=== PATIENT | female | born 1945 | race Caucasian/White ===

== ENCOUNTER 2023-04-03 12:59 | Outpatient (AMB) | payer MEDICARE, SELFPAY ==
--- NOTE | 2023-04-03 13:09 | MHC.OFFVIS ---
Intake Vital Signs 04/03/23 13:10 Height 5 ft 9 in Weight 166 lb 2 oz BMI 24.5 BP 142/88 H Blood Pressure Location Rt brachial Position Sitting Respiration 16 Pulse 79 Pulse Source Pulse Oximeter Pulse Oximetry (%) 98 Oxygen Delivery Method Room Air Intake Visit Reasons: [id number] Intake Note: Pt presents for new patient evaluation for memory issues. Pt is here with her son Dexter. They report pts began having memory issues shortly after a stroke 3 years ago. Her also recently and this seems to have worsened her symptoms. The complain of memory loss- both long and short term. 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 Pt reports forgetfulness. She forgets quickly if she did something or not. She is asking same questions to her son over and over again and asking if she did something. Pt also reports difficulty problem solving and non confident decision making. She had a stroke in 2010, and her memory has gradually worsened since then. Pt's passed in 2020, and she was overwhelmed because her did almost everything for finances. Now her son takes care of bills and finances. She has mitral valve replacement done and she is on warfarin. Pt states that her mood is stable, denies depression. She sleeps well, but her cat bothers her sleep sometimes. His son is therapist and he thinks that his mother has ADHD but not diagnosed. She does not drive, her primary care advised to stop driving. She was easily confused where she was going to. Pt's primary care ordered neuropsychology evaluation, but pt does not remember where it is ordered. Pt had a brain MRI done in which showed bilateral parietal cortical loss, bilateral temporal cortical loss and mild evidence of vascular disease. [facility]LY [facility] Surgical History (Updated 04/03/23 @ 13:16 by Hortencia Gibson CMA) H/O section H/O mastectomy Heart valve replaced Family History (Updated 04/03/23 @ 13:18 by Hortencia Gibson CMA) Father No problems noted. Mother No problems noted. Sister Breast CA Social History (Updated 04/03/23 @ 13:19 by Hortencia Gibson CMA) Household Members: None Housing: Apartment Alcohol intake: current Alcohol type: wine Patient Tobacco Use Status: Never used Tobacco Review of Systems Const All systems reviewed & are unremarkable except as noted in HPI and below Physical Exam Vital Signs: Last Vital Signs Pulse 79 04/03/23 13:10 Resp 16 04/03/23 13:10 BP 142/88 H 04/03/23 13:10 Pulse Ox 98 04/03/23 13:10 Oxygen Delivery Method Room Air 04/03/23 13:10 BMI result Body Mass Index 24.5 Const General: cooperative Nutritional Appearance: average body habitus Orientation/consciousness: oriented to person Neck Neck: Yes full ROM and Yes supple Resp Effort & Inspection: normal respiratory effort and able to speak in complete sentences Neuro Other: left hand marketing development representative weakness. hx of wrist fx. General: oriented to person and gait normal Cranial nerves: Yes CN's II-XII intact bilaterally Motor exam (neuro): 5/5 motor strength present throughout (left hand marketing development representative weaker than right.), Pronator motor function not present and no tremor noted Deep tendon reflexes (DTR's): Right brachioradialis reflex intensity grade: 2+, Left brachioradialis reflex intensity grade: 2+, Right patellar reflex intensity grade: 2+ and Left patellar reflex intensity grade: 2+ Psych Appearance: grossly normal Mental Status: mental status grossly normal Speech and movement: Normal speech and movement present Attitude: cooperative Thought process: Normal thought process present Orientation What is the (year) (season) (date) (day) (month)?: season and month Where are we (state) (county) (town or city) (hospital) (floor)?: state, county, town or city and hospital/clinic Registration Name of 3 unrelated objects clearly and slowly, then ask patient to repeat all 3 of them. (1st repeat determines score. Make sure they can repeat all three): object 1, object 2 and object 3 Attention & Calculation (CHOOSE ONE) Spell WORLD backwards (DLROW): 1 letter Language Show patient a wristwatch & ask what it is. Repeat for pencil.: watch and pencil Ask the patient to repeat the phrase 'No ifs, ands, or buts' after you.: correct Ask the patient to 'take a piece of paper with their right hand' 'fold paper in half' 'place paper on floor': take paper in right hand, fold paper in half and place paper on floor Print the sentence 'CLOSE YOUR EYES' on a piece. If patient actually closes eyes then score.: followed written direction Give patient a blank piece of paper & ask to write a sentence. Score if it contains a noun & verb.: sentence contains subject and verb Ask patient to copy figure of intersecting pentagons exactly. Score if all 10 angles & 2 intersects are included.: all 10 angles present & 2 are intersected Score Score: 19 Assessment & Plan Assessment & Plan (1) Memory loss or impairment: Code(s): R41.3 - Other amnesia Plan MMSE score 19 today. Will check labs for reversible causes of memory loss. Advised patient to undergo neuropsychology evaluation. Start memantine 7 mg ER daily. Orders: Orders Comprehensive Met. Panel 04/03/23 R41.3 - Other amnesia TSH reflex Free T4 04/03/23 R41.3 - Other amnesia RPR Monitor reflex titer 04/03/23 R41.3 - Other amnesia Complete Blood Count Auto Diff 04/03/23 R41.3 - Other amnesia Erythrocyte Sedimentation Rate 04/03/23 R41.3 - Other amnesia Vitamin B12 and Folate 04/03/23 R41.3 - Other amnesia Vitamin D 25-OH (D2 and D3) 04/03/23 R41.3 - Other amnesia Referrals Neuropsychiatry Referral R41.3 - Other amnesia Medications: New memantine 7 mg PO DAILY 30 ea 1RF 30 days Coding Level of Care Code New Pt Level 4 (12912) Diagnoses Memory loss or impairment R41.3
[2023-04-03 13:10] VITALS: BP 142/88; PULSE 79; RESP 16; O2SAT 98; BMI 24.5
== END 2023-04-03 13:57 | disposition home or self-care (01) ==
PROVIDERS: PCP Nurse Practitioner; Visit Provider Nurse Practitioner Family
DX: R41.3 Other amnesia (principal)
CPT/HCPCS: 99204

== ENCOUNTER → 2023-04-03 12:59 | Outpatient (BNVA) | payer MEDICARE, SELFPAY | PROVIDERS: PCP Nurse Practitioner; Visit Provider Nurse Practitioner Family | DX: R41.3 Other amnesia (principal); Z86.73 Personal history of transient ischemic attack (TIA), and cerebral infarction without residual deficits | CPT/HCPCS: 99202 ==

== ENCOUNTER 2023-06-04 13:19 | Outpatient (REF) | payer MEDICARE, SELFPAY ==
[2023-06-04 15:07] LABS: MANUAL DIFF FLAG NO
[2023-06-04 15:32] LABS: Basophils Absolute Auto 0.1 X10*3/uL (0.0-0.2); Basophils Percent Auto 0.8 % (0-2); Eosinophils Absolute Auto 0.2 X10*3/uL (0.0-0.4); Eosinophils Percent Auto 3.3 % (0-4); Hematocrit 38.8 % (37.0-47.0); Hemoglobin 12.6 g/dl (12.0-16.0); Imm Gran Abs Auto 0.01 X10*3/uL (0.00-0.03); Imm Gran Pct Auto 0.2 % (0.0-0.4); Lymphocytes Absolute Auto 1.7 X10*3/uL (1.2-4.9); Lymphocytes Percent Auto 28.2 % (20-40); Mean Corpuscular HGB Conc 32.5 g/dl (31.0-35.0); Mean Corpuscular Hemoglobin 30.5 pg (27.0-33.0); Mean Corpuscular Volume 93.9 fL (80.0-98.0); Mean Platelet Volume 9.3 fL (9.4-12.3); Monocytes Absolute Auto 0.5 X10*3/uL (0.1-1.2); Monocytes Percent Auto 7.6 % (2-11); Neutrophils Absolute Auto 3.6 x10*3/uL (2.0-8.3); Neutrophils Percent Auto 59.9 % (45-73); Platelet Count 237 X10*3/uL (160-400); Red Blood Count 4.13 X10*6/uL (4.20-5.50); Red Cell Distribution Width 13.5 % (11.0-16.0)
[2023-06-04 16:02] LABS: Alanine Aminotransferase 13 U/L (0-31); Albumin Level 4.3 g/dL (3.5-5.0); Alkaline Phosphatase 86 U/L (39-117); Anion Gap 10 (12-20); Aspartate Amino Transferase 22 U/L (5-31); Bilirubin Total 1.2 mg/dL (0.0-1.0); Blood Urea Nitrogen 25 mg/dL (9-16); Calcium 9.6 mg/dL (8.4-10.2); Carbon Dioxide 29 mmol/L (22-29); Chloride 108 mmol/L (96-108); Estimated Glomerular Filt Rate 48; Glucose Random 109 mg/dL (60-115); Potassium 4.1 mmol/L (3.3-5.1); Sodium 143 mmol/L (135-145); Total Protein 7.4 g/dL (6.5-8.0)
[2023-06-04 16:17] LABS: TSH reflex Free T4 1.38 uIU/mL (0.32-4.0)
[2023-06-04 16:22] LABS: Erythrocyte Sedimentation Rate 14 MM/HR (0-20)
[2023-06-04 16:35] LABS: Folate 13.1 ng/mL (> or = 4.0)
[2023-06-04 16:40] LABS: Vitamin B12 423 pg/mL (200-900)
[2023-06-05 11:24] LABS: RPR Rapid Plasma Reagin NON-REACTIVE (NON-REACTIVE)
[2023-06-08 15:23] LABS: Vitamin D 25-OH, D2 <4 ng/mL; Vitamin D 25-OH, D3 36 ng/mL; Vitamin D 25-OH, Total 36 ng/mL (30-100)
== END 2023-06-04 13:20 | disposition home or self-care (01) ==
LOC: HO.LAB 13:19
PROVIDERS: PCP Nurse Practitioner; Visit Provider Nurse Practitioner Family
DX: R41.3 Other amnesia (principal)
CPT/HCPCS: 36415; 80053; 82306; 82607; 82746; 84443; 85025; 85652; 86592; 99212

== ENCOUNTER 2023-06-04 13:19 | Outpatient (AMB) | payer MEDICARE, SELFPAY ==
--- NOTE | 2023-06-04 13:33 | A.OFFVIS_ITS ---
Intake Vital Signs 06/04/23 13:44 Height 5 ft 9 in Weight 164 lb 8 oz BMI 24.3 BP 130/82 Blood Pressure Location Rt brachial Position Sitting Pulse 79 Pulse Source Pulse Oximeter Pulse Oximetry (%) 98 Oxygen Delivery Method Room Air Intake Visit Reasons: 2 mo f/u Memory - LVM w/addrees Intake Note: Patient presents for 2 months f/u. Not sure Memantine is working Allergies No Known Allergies Allergy (Verified 06/04/23 13:39) HPI HPI Comments History of Present Illness Details 77 y/o female patient presents with her sister for follow up visit for memory loss. Pt reports she does not notice improvement of memory but feels she can thinks more clear. Pt started memantine ER 7 mg at the last visit. She still forgets quickly if she did something or not. She is asking same questions to her son over and over again and asking if she did something. She had a stroke in 2010, and her memory has gradually worsened since then. Pt's passed in 2020, and she was overwhelmed because her did almost everything for finances. Now her son takes care of bills and finances, and her son help her to keep track it. She has mitral valve replacement done and she is on warfarin. Pt states that her mood is stable, denies depression. She sleeps well, but her cat bothers her sleep sometimes. She does not drive, her primary care advised to stop driving. She was easily confused where she was going to. Neuropsychology evaluation ordered, but not scheduled yet. The brain MRI in which showed bilateral parietal cortical loss, bilateral temporal cortical loss and mild evidence of vascular disease. [facility] Surgical History H/O section H/O mastectomy Heart valve replaced Family History Father No problems noted. Mother No problems noted. Sister Breast CA Social History Household Members: None Housing: Apartment Alcohol intake: current Alcohol type: wine Patient Tobacco Use Status: Never used Tobacco Review of Systems Const All systems reviewed & are unremarkable except as noted in HPI and below Physical Exam Vital Signs: Last Vital Signs Pulse 79 06/04/23 13:44 BP 130/82 06/04/23 13:44 Pulse Ox 98 06/04/23 13:44 Oxygen Delivery Method Room Air 06/04/23 13:44 BMI result Body Mass Index 24.3 Const General: cooperative Nutritional Appearance: average body habitus Orientation/consciousness: oriented to person Neck Neck: Yes full ROM and Yes supple Resp Effort & Inspection: normal respiratory effort and able to speak in complete sentences Neuro Other: left hand inspector materials and processes weakness. hx of wrist fx. General: oriented to person and gait normal Cranial nerves: Yes CN's II-XII intact bilaterally Motor exam (neuro): 5/5 motor strength present throughout (left hand inspector materials and processes weaker than right.), Pronator motor function not present and no tremor noted Deep tendon reflexes (DTR's): Right brachioradialis reflex intensity grade: 2+, Left brachioradialis reflex intensity grade: 2+, Right patellar reflex intensity grade: 2+ and Left patellar reflex intensity grade: 2+ Psych Appearance: grossly normal Mental Status: mental status grossly normal Speech and movement: Normal speech and movement present Attitude: cooperative Thought process: Normal thought process present Assessment & Plan Assessment & Plan (1) Memory loss or impairment: Code(s): R41.3 - Other amnesia Plan Advised patient to undergo neuropsychology evaluation. Neuropsychology contact imformation given to patient's sister. Increase memantine to 14 mg ER daily. Lab ordered, but not done yet. Medications: New memantine 14 mg PO DAILY 30 days 30 ea 1RF Discontinued memantine Discontinued Reason: Doctor's Order 7 mg PO DAILY 30 days 30 ea 1RF Coding Level of Care Code Est Pt Level 3 (91931) Diagnoses Memory loss or impairment R41.3
[2023-06-04 13:44] VITALS: BP 130/82; PULSE 79; O2SAT 98; BMI 24.3
== END 2023-06-04 14:13 | disposition home or self-care (01) ==
PROVIDERS: PCP Nurse Practitioner; Visit Provider Nurse Practitioner Family
DX: R41.3 Other amnesia (principal)
CPT/HCPCS: 99213

== ENCOUNTER 2023-09-17 14:06 | Outpatient (AMB) | payer MEDICARE, SELFPAY ==
--- NOTE | 2023-09-17 14:11 | A.OFFVIS_ITS ---
Vital Signs 09/17/23 14:12 Height 5 ft 9 in Weight 160 lb BMI 23.6 BP 132/76 Blood Pressure Location Rt brachial Position Sitting Respiration 16 Pulse 86 Pulse Source Pulse Oximeter Pulse Oximetry (%) 100 Oxygen Delivery Method Room Air Intake Visit Reasons: follow up Memory - LVM w/add Intake Note: Pt presents for a 4 month follow up for memory impairment. 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 Neuropsych was done due to insurnace issues. Pt reports she does not notice improvement of memory Pt is on memantine ER 14 mg She had a stroke in 2010, and her memory has gradually worsened since then. Pt's passed in 2020, and she was overwhelmed because her did almost everything for finances. Now her son takes care of bills and finances, and her son help her to keep track it. She has mitral valve replacement done and she is on warfarin. Pt states that her mood is stable, denies depression. She sleeps well, but her cat bothers her sleep sometimes. She does not drive, her primary care advised to stop driving. She was easily confused where she was going to. The brain MRI in which showed bilateral parietal cortical loss, bilateral temporal cortical loss and mild evidence of vascular disease. [facility] Medical History (Updated 09/17/23 @ 14:28 by Katy Childress MD) Dementia Surgical History H/O section H/O mastectomy Heart valve replaced Family History Father No problems noted. Mother No problems noted. Sister Breast CA Social History Household Members: None Housing: Apartment Alcohol intake: current Alcohol type: wine Patient Tobacco Use Status: Never used Tobacco Physical Exam Vital Signs: Last Vital Signs Pulse 86 09/17/23 14:12 Resp 16 09/17/23 14:12 BP 132/76 09/17/23 14:12 Pulse Ox 100 09/17/23 14:12 Oxygen Delivery Method Room Air 09/17/23 14:12 BMI result Body Mass Index 23.6 Const General: cooperative Nutritional Appearance: average body habitus Orientation/consciousness: oriented to person Neck Neck: Yes full ROM and Yes supple Resp Effort & Inspection: normal respiratory effort and able to speak in complete sentences Neuro Other: 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 hx of wrist fx. General: oriented to person and gait normal Cranial nerves: Yes CN's II-XII intact bilaterally Motor exam (neuro): 5/5 motor strength present throughout (left hand middle school math teacher weaker than right.), Pronator motor function not present and no tremor noted Psych Appearance: grossly normal Mental Status: mental status grossly normal Speech and movement: Normal speech and movement present Attitude: cooperative Thought process: Normal thought process present Orientation What is the (year) (season) (date) (day) (month)?: season Where are we (state) (county) (town or city) (hospital) (floor)?: state, hospital/clinic and floor Registration Name of 3 unrelated objects clearly and slowly, then ask patient to repeat all 3 of them. (1st repeat determines score. Make sure they can repeat all three): object 1, object 2 and object 3 Attention & Calculation (CHOOSE ONE) Spell WORLD backwards (DLROW): 3 letters Recall Ask patient to repeat the 3 items from question #3.: object 3 Language Show patient a wristwatch & ask what it is. Repeat for pencil.: watch and pencil Ask the patient to repeat the phrase 'No ifs, ands, or buts' after you.: correct Ask the patient to 'take a piece of paper with their right hand' 'fold paper in half' 'place paper on floor': take paper in right hand, fold paper in half and place paper on floor Score Score: 17 Assessment & Plan Assessment & Plan (1) Dementia: Comment: mixed Code(s): F03.90 - Unspecified dementia, unspecified severity, without behavioral disturbance, psychotic disturbance, mood disturbance, and anxiety Category: Medical Plan Increase memantine to Xr 21mg qd I will trial her on donepezil 10mg qd Will consider leqembi- patient is on warfarin so will monitor Medications: New donepezil 1/2 tab qd for 4 weeks then 1 tab qd 10 mg PO DAILY 30 tabs 6RF Changed From memantine 14 mg PO DAILY 90 days 90 ea 1RF To memantine 21 mg PO DAILY 90 days 90 ea 0RF Coding Level of Care Code Est Pt Level 4 (08070) Diagnoses Dementia F03.90
[2023-09-17 14:12] VITALS: BP 132/76; PULSE 86; RESP 16; O2SAT 100; BMI 23.6
== END 2023-09-17 14:38 | disposition home or self-care (01) ==
PROVIDERS: PCP Nurse Practitioner; Visit Provider Psychiatry & Neurology Neurology
DX: F03.90 Unspecified dementia, unspecified severity, without behavioral disturbance, psychotic disturbance, mood disturbance, and anxiety (principal)
CPT/HCPCS: 99214

== ENCOUNTER → 2023-09-17 14:06 | Outpatient (BNVA) | payer MEDICARE, SELFPAY | PROVIDERS: PCP Nurse Practitioner; Visit Provider Psychiatry & Neurology Neurology | DX: F03.90 Unspecified dementia, unspecified severity, without behavioral disturbance, psychotic disturbance, mood disturbance, and anxiety (principal) | CPT/HCPCS: 99212 ==

== ENCOUNTER 2023-12-24 19:51 | Outpatient (REF) | payer MEDICARE, SELFPAY ==
--- NOTE | ~2023-12-24 | MR_ITS ---
EXAMINATION: MR BRAIN WITHOUT CONTRAST CLINICAL INFORMATION: Unspecified dementia COMPARISON: None available. TECHNIQUE: MRI of the brain was obtained using routine sequences without contrast. FINDINGS: No acute intracranial hemorrhage or infarct. Scattered and confluent periventricular and deep white matter T2/FLAIR hyperintensities, nonspecific however commonly seen with small vessel ischemic disease. Multiple foci of susceptibility artifact scattered through the bilateral cerebral and cerebellar hemispheres. Diffuse prominence of the sulci with associated ex vacuo dilation of the ventricles compatible with global cerebral atrophy. No midline shift or hydrocephalus. No acute extra-axial fluid collections. The osseous structures are unremarkable. The pituitary gland, pineal gland and remaining midline structures are unremarkable. Sequelae of bilateral lens replacement. Otherwise, no acute orbital pathology. The paranasal sinuses and mastoid air cells are clear. MR/MR head/brain wo con IMPRESSION: -No acute intracranial hemorrhage or infarct. -Chronic microangiopathy and global cerebral atrophy. -Multifocal susceptibility artifact scattered through the bilateral cerebral and cerebellar hemispheres without predominance can be seen with hypertensive microhemorrhages versus amyloid angiopathy. Electronically signed by: Felipe Holliday MD 12/29/2023 07:16 PM EDT
== END 2023-12-24 19:52 | disposition home or self-care (01) ==
LOC: HO.MRI 19:51
PROVIDERS: PCP Nurse Practitioner; Visit Provider Psychiatry & Neurology Neurology
DX: F03.90 Unspecified dementia, unspecified severity, without behavioral disturbance, psychotic disturbance, mood disturbance, and anxiety (principal)
CPT/HCPCS: 70551